=== PATIENT | female | born 1955 | race Caucasian/White ===

== ENCOUNTER 2024-04-24 17:11 | Inpatient (IN) | payer MEDICARE ==
[~2024-04-24] VITALS: Ht 162.5 cm; Wt 55.4 kg
[2024-04-24] MEDS ORDERED: LISINOPRIL5 MG PO (17:52)
[2024-04-24] MEDS ORDERED: LOPRESSOR25 MG PO (17:54)
[2024-04-24] MEDS ORDERED: LEXAPRO5 M1 PO (17:57)
[2024-04-24] MEDS ORDERED: RISPERIDONE1 MG PO (17:58)
[2024-04-24] MEDS ORDERED: MUCUS RELIEF600 MG PO (18:00)
[2024-04-24] MEDS ORDERED: BENZONATATE100 M1 PO (18:02)
[2024-04-24] MEDS ORDERED: MIRALAX17 GM PO ×2 (18:04→18:20)
[2024-04-24] MEDS ORDERED: COLACE CLEAR50 MG PO (18:05)
[2024-04-24] MEDS ORDERED: HEPARIN SO5000 UNIT5 SQ (18:08)
[2024-04-24] MEDS ORDERED: CLONIDINE HCL0.1 MG PO (18:12)
[2024-04-24] MEDS ORDERED: APRESOLINE10 MG IV (18:13)
[2024-04-24] MEDS ORDERED: ATIVAN2 MG/1 ML IV (18:17)
[2024-04-24] MEDS ORDERED: MYLANTA MAXIMU355 M1 PO (18:19)
[2024-04-24] MEDS ORDERED: ONDANSETRON4 MG/5 M2 IV (18:22)
[2024-04-24] MEDS ORDERED: TYLENOL325 M2 PO (18:24)
[2024-04-24] MEDS ORDERED: LORazepam 1 MG TAB PO PRN (18:55)
[2024-04-24] MEDS ORDERED: Ziprasidone Mesylate 20 MG VIAL IM PRN (18:55)
[2024-04-24] MEDS ORDERED: hydrOXYzine hydrochloride 50 MG/ML VIAL IM PRN (18:55)
[2024-04-24 20:00] VITALS: BP 105/52
[2024-04-24] MEDS ORDERED: Magnesium Hydroxide 30 ML UDC PO PRN (20:20)
[2024-04-24] MEDS ORDERED: MG-AL HYDROXIDE/SIMETICONE 30 ML UDC PO PRN (20:20)
[2024-04-24] MEDS ORDERED: ACETAMINOPHEN 325 MG TAB PO PRN (20:20)
[2024-04-24] MEDS ORDERED: Menthol/Zinc Oxide 4 GM THIN T PRN (20:25)
[2024-04-24] MEDS ORDERED: risperiDONE 0.5 MG TAB PO SCH (21:00)
[2024-04-24] MEDS ORDERED: Polyethylene Glycol 3350 17 GM PACKET PO PRN (21:40)
[2024-04-24] MEDS ORDERED: DOCUSATE SODIUM 100 MG CAP PO PRN (21:40)
[2024-04-24] MEDS ORDERED: BENZONATATE 100 MG CAP PO PRN (21:40)
[2024-04-25 07:03] LABS: BASO % 0.6 % (0.0-1.0); EOS # 0.1 10*3/uL (0.0-0.4); EOS % 1.3 % (1.0-4.0); HEMATOCRIT 31.4 % (37.0-47.0); MEAN CELL VOLUME 93.7 fl (81.0-99.0); MEAN CORPUSCULAR HGB CONC 33.1 g/dl (33.0-37.0); MEAN PLATELET VOLUME 8.5 fl (9.6-12.3); MONO # 0.6 10*3/uL (0.1-1.0); MONO % 11.7 % (3.0-9.0); NEUT # 2.3 10*3/uL (2.3-7.9); NEUT % 48.3 % (47.0-73.0); PLATELET COUNT AUTOMATED 265 10*3/uL (130-400); RED BLOOD COUNT 3.35 10*6/uL (4.10-5.10); RED CELL DISTRI WIDTH 13.6 % (0-14.5); WHITE BLOOD COUNT 4.7 10*3/uL (4.8-10.8)
[2024-04-25 07:26] LABS: ALKALINE PHOSPHATASE 45 U/L (46-116); BUN 12 mg/dl (9-23); CHLORIDE 101 mmol/L (98-107); CHOLESTEROL 180 mg/dL (<200); LDL CHOLESTEROL 123 mg/dL (9-159); POTASSIUM 4.6 mmol/L (3.4-5.1); SGPT/ALT 10 U/L (5-49); TOTAL PROTEIN 6.2 gm/dL (6.0-8.0); TRIGLYCERIDES 95 mg/dl (<150)
[2024-04-25 08:00] VITALS: BP 118/73
[2024-04-25 08:00] LABS: VITAMIN D, 25-HYDROXY 26.6 ng/mL (30-100)
[2024-04-25] MEDS ORDERED: LISINOPRIL 5 MG TAB PO SCH (09:00)
[2024-04-25] MEDS ORDERED: ESCITALOPRAM OXALATE 10 MG TAB PO SCH (09:00)
[2024-04-25] MEDS ORDERED: Metoprolol Tartrate 25 MG TAB PO SCH (09:00)
[2024-04-25] MEDS ORDERED: LORazepam 0.5 MG TAB SL ONE (09:40)
[2024-04-25 20:00] VITALS: BP 105/53
[2024-04-25] MEDS ORDERED: Mirtazapine 15 MG TAB PO SCH (21:00)
[2024-04-25] MEDS ORDERED: clonAZEPAM 0.5 MG TAB PO SCH (21:00)
[2024-04-26] MEDS ORDERED: BENZONATATE 100 MG CAP PO PRN (07:30)
[2024-04-26 08:00] VITALS: BP 121/79
[2024-04-26] MEDS ORDERED: LISINOPRIL 5 MG TAB PO SCH (09:00)
[2024-04-26] MEDS ORDERED: Cholecalciferol 5,000 IU CAP (125 MCG) PO SCH (09:00)
[2024-04-26 11:41] LABS: BILIRUBIN Negative (Negative); BLOOD Negative (Negative); CLARITY Clear (Clear); COLOR Yellow (Yellow); GLUCOSE Negative (Negative); KETONE Negative (Negative); LEUKO ESTERASE 1+ (Negative); NITRITE Negative (Negative); SPECIFIC GRAVITY <= 1.005 (1.001-1.030); UROBILINOGEN 0.2 E.U./dl (0.0-1.0)
[2024-04-26 11:56] LABS: BACTERIA TRACE; EPITHELIAL CELLS 0-2; YEAST 3+
[2024-04-26 20:00] VITALS: BP 114/58
[2024-04-27 08:00] VITALS: BP 139/80
[2024-04-27 20:00] VITALS: BP 109/56
[2024-04-28 08:37] VITALS: BP 127/67
[2024-04-28] MEDS ORDERED: AQUAPHOR OINTMENT Base 50 GM TUBE T SCH (10:00)
[2024-04-28 20:00] VITALS: BP 105/60
[2024-04-28] MEDS ORDERED: clonAZEPAM 1 MG TAB PO SCH (21:00)
[2024-04-28] MEDS ORDERED: RAMELTEON 8 MG TAB PO SCH (21:00)
[2024-04-29 08:00] VITALS: BP 110/64
[2024-04-29] MEDS ORDERED: FLUCONAZOLE 100 MG TAB PO SCH (09:00)
[2024-04-29 20:00] VITALS: BP 107/50
[2024-04-30 08:00] VITALS: BP 116/67
[2024-04-30] MEDS ORDERED: CYCLOBENZAPRINE5 M3 PO (12:55)
[2024-04-30] MEDS ORDERED: IBUPROFEN400 MG PO (12:56)
[2024-04-30 20:00] VITALS: BP 118/62
[2024-04-30] MEDS ORDERED: clonAZEPAM 2 MG TAB PO SCH (21:00)
[2024-05-01 08:00] VITALS: BP 112/67
[2024-05-01] MEDS ORDERED: clonAZEPAM 1 MG TAB PO SCH (09:00)
[2024-05-01] MEDS ORDERED: KLONOPIN2 M1 PO (10:54)
[2024-05-01] MEDS ORDERED: CLONAZEPAM1 MG PO (10:54)
[2024-05-01] MEDS ORDERED: MIRTAZAPINE15 M2 PO (10:54)
[2024-05-01 20:28] VITALS: BP 112/67
[2024-05-02 08:00] VITALS: BP 118/59
== END 2024-05-02 13:43 | disposition home or self-care (01) | DRG 885 ==
LOC: 3N 17:11
PROVIDERS: ADMIT Psychiatry & Neurology Psychiatry; ATTEND Psychiatry & Neurology Psychiatry
PROC: GZHZZZZ Group Psychotherapy (ICD-10-PCS; 2024-04-25)
PROC: GZ51ZZZ Individual Psychotherapy, Behavioral (ICD-10-PCS; 2024-04-25)
PROC: 0HBRXZZ Excision of Toe Nail, External Approach (ICD-10-PCS; principal; 2024-04-27)
PROC: 0HBRXZZ Excision of Toe Nail, External Approach (ICD-10-PCS; 2024-04-27)
PROC: 0HBRXZZ Excision of Toe Nail, External Approach (ICD-10-PCS; 2024-04-27)
PROC: 0HBRXZZ Excision of Toe Nail, External Approach (ICD-10-PCS; 2024-04-27)
PROC: 0HBRXZZ Excision of Toe Nail, External Approach (ICD-10-PCS; 2024-04-27)
PROC: 0HBRXZZ Excision of Toe Nail, External Approach (ICD-10-PCS; 2024-04-27)
PROC: 0HBRXZZ Excision of Toe Nail, External Approach (ICD-10-PCS; 2024-04-27)
PROC: 0HBRXZZ Excision of Toe Nail, External Approach (ICD-10-PCS; 2024-04-27)
PROC: 0HBRXZZ Excision of Toe Nail, External Approach (ICD-10-PCS; 2024-04-27)
PROC: 0HBRXZZ Excision of Toe Nail, External Approach (ICD-10-PCS; 2024-04-27)
DX: F33.2 Major depressive disorder, recurrent severe without psychotic features (principal); E44.0 Moderate protein-calorie malnutrition; F29 Unspecified psychosis not due to a substance or known physiological condition; F19.10 Other psychoactive substance abuse, uncomplicated; R33.9 Retention of urine, unspecified; I10 Essential (primary) hypertension; D64.9 Anemia, unspecified; E55.9 Vitamin D deficiency, unspecified; F41.1 Generalized anxiety disorder; B35.1 Tinea unguium; Z88.0 Allergy status to penicillin; Z88.2 Allergy status to sulfonamides; Z79.899 Other long term (current) drug therapy; Z82.49 Family history of ischemic heart disease and other diseases of the circulatory system; Z68.20 Body mass index [BMI] 20.0-20.9, adult